=== PATIENT | female | born 1975 | race Asian ===

== ENCOUNTER 2017-03-04 11:49 | Emergency (ER) | payer BC ==
[2017-03-04 13:18] VITALS: BP 151/100
--- NOTE | 2017-03-04 13:35 | UC ---
Throat Pain/Nasal Nuno HPI - HPI Summary HPI Summary: complaint of nasal congestion cough and sore throat that started on 02/28 intermittent headache productive cough denies ear pain denies fever and chills denies N/V/D, muscle achiness taking nyquil , throat spray, ibuprofen with some relief son with similiar illness - History of Current Complaint Chief Complaint: UCRespiratory Stated Complaint: SORE THROAT Time Seen by Provider: 03/04/17 13:29 Hx Obtained From: Patient Hx Last Menstrual Period: 02/22/17 - Allergies/Home Medications Allergies/Adverse Reactions: Allergies Allergy/AdvReac Type Severity Reaction Status Date / Time No Known Allergies Allergy Verified 03/04/17 13:18 Home Medications: Home Medications Levothyroxine TAB* [Synthroid 75 MCG TAB*] 75 mcg PO DAILY 03/04/17 [History Confirmed 03/04/17] PMH/Surg Hx/FS Hx/Imm Hx Previously Healthy: Yes Endocrine History Of: Reports: Thyroid Disease - Surgical History Surgical History: Yes Surgery Procedure, Year, and Place: C section - Family History Known Family History: Negative: Cardiac Disease, Hypertension, Diabetes - Social History Occupation: Employed Full-time Lives: With Family Alcohol Use: Weekly Substance Use Type: None Smoking Status (MU): Never Smoked Tobacco Review of Systems Constitutional: Negative Skin: Negative Eyes: Negative ENT: Sore Throat, Nasal Discharge Respiratory: Cough Cardiovascular: Negative Gastrointestinal: Negative Genitourinary: Negative Motor: Negative Neurovascular: Negative Musculoskeletal: Negative Neurological: Negative Psychological: Negative All Other Systems Reviewed And Are Negative: Yes Physical Exam Triage Information Reviewed: Yes Appearance: No Pain Distress, Well-Nourished Vital Signs: Initial Vital Signs Temp 96.6 F 03/04/17 13:14 Pulse 70 03/04/17 13:14 Resp 16 03/04/17 13:14 BP 151/100 03/04/17 13:14 Pulse Ox 100 03/04/17 13:14 Vital Signs Reviewed: Yes Eyes: Positive: Conjunctiva Clear ENT: Positive: Pharyngeal erythema, Nasal congestion, Nasal drainage, TMs normal , Other: - no sinus tenderness. Negative: Tonsillar swelling, Tonsillar exudate Neck: Positive: No Lymphadenopathy Respiratory: Positive: Lungs clear, Normal breath sounds, No respiratory distress, No accessory muscle use Cardiovascular: Positive: RRR, No Murmur, Pulses Normal Abdomen Description: Positive: Nontender, Soft Bowel Sounds: Positive: Present Musculoskeletal Exam: Normal Neurological: Positive: Alert Psychological Exam: Normal Skin Exam: Normal Throat Pain/Nasal Course/Dx - Differential Dx/Diagnosis Differential Diagnosis/HQI/PQRI: Pharyngitis, URI Provider Diagnoses: URI. elevated blood pressure Discharge - Discharge Plan Condition: Stable Disposition: [facility]ILITY Prescriptions: Benzonatate CAP* [Tessalon 100 MG CAP*] 100 mg PO TID PRN #30 cap PRN Reason: Cough Oxymetazoline 0.05% NASAL SPR* [Afrin 0.05% NASAL SPRAY*] 1 spray NASAL Q12H #1 btl Patient Education Materials: Upper Respiratory Infection (ED) Referrals: No Primary Care Phys,NOPCP [Primary Care Provider] - Chayo Castanon MD [Medical Doctor] - Additional Instructions: VIRAL UPPER RESPIRATORY INFECTION (COMMON COLD) What is Viral Upper Respiratory Infection? Viral upper respiratory infection is the medical term for the common cold. Respiratory infections can be caused by either a virus or bacteria. The common cold is caused by a virus. The virus travels through the air and can be passed easily from one person to another. This is one reason that it is so important to cover your mouth when you cough or sneeze. When you cover your mouth you will get the virus on your hands. If you touch something with that hand the virus is spread to the object you touch. Because of this you should be sure to wash your hands often when you have a cold. Symptoms usually begin 1 to 3 days after the virus takes hold in your body. Other people can catch your cold even before you start to notice symptoms, which is one reason why colds are hard to prevent. Symptoms May Include: Scratchiness or tickling in the throat Sore throat Stuffy nose Generalized aches and pains Coughing or sneezing Feeling tired Treatment Recommendations: Drink plenty of clear, nonalcoholic fluids, such as water, sports drinks, or juice. For example, an average adult should drink 8 ounces every hour, a child 6 to 10 years should drink 4 ounces every hour, and a child under 6 should drink 1 to 2 ounces every hour. You should rest as much as possible. You can use a cool-mist humidifier or steam vaporizer to increase air moisture. This will make it easier to breathe. Remember that a steam vaporizer may contain hot water that can cause severe fuller. If you smoke, stopsmoke irritates bronchial passages. If you are coughing up mucus, and milk seems to make the sputum thicker, do not eat or drink foods that contain milk. You want to try to cough up mucous whenever possible so that you dont get pneumonia. Do not use cough suppressant medicine without your healthcare providers OK. You should take all medications prescribed until completely gone, or as instructed. Non-prescription medicine such as acetaminophen (Tylenol) or ibuprofen (Motrin , Advil) may help your aches, pains, and fever. Do not take someone else's medicine, or penicillin tablets that you may have saved. You could cause a more serious problem than you already have. Don't bundle up to sweat out a fever. It only makes your fever worse. If you feel cold, cover up; if you feel warm, dress lightly. Your blood pressure is elevated. Please contact your primary care provider within 1 -4 weeks for further evaluation
== END 2017-03-04 13:45 | disposition home or self-care (01) ==
LOC: MERGE 11:49 → UCEAST 11:49
DX: J06.9 Acute upper respiratory infection, unspecified (principal); R03.0 Elevated blood-pressure reading, without diagnosis of hypertension; E07.9 Disorder of thyroid, unspecified
CPT/HCPCS: 99201; G0463

== ENCOUNTER → 2018-08-17 19:27 | Emergency (ER) | payer BC, OTHER ==
--- NOTE | 2018-08-17 20:09 | ED ---
- HPI Summary HPI Summary: Pt is a 43 year old F presenting to the ED with a chief complaint of vaginal bleeding. Pt was 5 weeks when the fetus stopped growing, is supposed to be 9 weeks , and was dxed with her miscarriage on 08/13/2018 at her [employer] office. The bleeding onset 2 wks ago but is heavier today, passing tissue , and has cramps. Pt has only been 1 other time and has a son. - History of Current Complaint Chief Complaint: EDVaginalBleeding Stated Complaint: 9 WKS PREG/BLEEDING/CRAMPS Time Seen by Provider: 08/17/18 19:49 Hx Obtained From: Patient Chief Complaint: Other: - miscarriage w/ associated bleeding and cramps Onset/Duration: Started Weeks Ago, Still Present, Worse Since - today Timing: Constant Severity: Moderate Current Severity: Moderate Pain Intensity: 6 Location of Pain: Suprapubic Character: Cramping Aggravating Factors: Nothing Alleviating Factors: Nothing Associated Signs and Symptoms: Positive: Vaginal Bleeding or Discharge - also passing tissue - Assessment Hx Now: No - miscarriage Hx : 2 Hx Para: 1 SAB: 0 IEA: 0 Vaginal Bleeding Amount: Medium - Additional Pertinent History Maternal Blood Type and Rh: A Positive - Allergies/Home Medications Allergies/Adverse Reactions: Allergies Allergy/AdvReac Type Severity Reaction Status Date / Time No Known Allergies Allergy Verified 08/17/18 19:36 PMH/Surg Hx/FS Hx/Imm Hx Previously Healthy: Yes Endocrine/Hematology History: Reports: Hx Thyroid Disease Cardiovascular History: Denies: Hx Hypertension - Surgical History Surgery Procedure, Year, and Place: C section Infectious Disease History: No Infectious Disease History: Denies: Traveled Outside the [place] in Last 30 Days - Family History Known Family History: Negative: Cardiac Disease, Hypertension, Diabetes - Social History Alcohol Use: Weekly Substance Use Type: Reports: None Smoking Status (MU): Never Smoked Tobacco Review of Systems Negative: Fever Positive: other - vaginal bleeding Positive: Myalgia - abdominal cramping All Other Systems Reviewed And Are Negative: Yes Physical Exam - Summary Physical Exam Summary: VITAL SIGNS: Reviewed. GENERAL: Patient is a well-developed and nourished female who is lying comfortable in the stretcher. Patient is not in any acute respiratory distress. HEAD AND FACE: No signs of trauma. No ecchymosis, hematomas or skull depressions. No sinus tenderness. EYES: PERRLA, EOMI x 2, No injected conjunctiva, no nystagmus. EARS: Hearing grossly intact. Ear canals and tympanic membranes are within normal limits. MOUTH: Oropharynx within normal limits. NECK: Supple, trachea is midline, no adenopathy, no JVD, no carotid bruit, no c- spine tenderness, neck with full ROM. CHEST: Symmetric, no tenderness at palpation LUNGS: Clear to auscultation bilaterally. No wheezing or crackles. CVS: Regular rate and rhythm, S1 and S2 present, no murmurs or gallops appreciated. ABDOMEN: Soft, non-tender. No signs of distention. No rebound no guarding, and no masses palpated. Bowel sounds are normal. EXTREMITIES: FROM in all major joints, no edema, no cyanosis or clubbing. NEURO: Alert and oriented x 3. No acute neurological deficits. Speech is normal and follows commands. SKIN: Dry and warm INTERVENTIONAL CARDIOLOGIST: Vagina mild to moderate bleeding, no clots. Cervix closed and posterior. Uterus normal signs. Adnexa No adnexa tenderness. - Physical Exam Triage Information Reviewed: Yes Vital Signs Reviewed: Yes Diagnostics - Vital Signs Vital Signs Temp Pulse Resp BP Pulse Ox 08/17/18 19:30 98.6 F 84 20 135/89 99 - Laboratory Result Diagrams: 08/17/18 20:22 08/17/18 20:22 Lab Statement: Any lab studies that have been ordered have been reviewed, and results considered in the medical decision making process. - Ultrasound No standard instances Ultrasound Interpretation Completed By: Radiologist - ED physician has reviewed this report. Summary of Ultrasound Findings: Findings suggestive of spontaneous in progress with heterogeneous. material seen in the endometrial canal. Minimal free fluid. Re-Evaluation - Re-Evaluation [id number] Change: Improved Comment: Pt states her bleeding is less and that her pain is subsided. She will be sent home with a dx of a complete and spontaneous . Course/Dx - Course Course Of Treatment: Pt is a 43 y/o F presenting to the ED with a chief complaint of vaginal bleeding and cramping onset 2 weeks ago due to miscarriage but worse since today. Pt was supposed to be 9 wks , fetus was declared miscarriaged at 5 wks . Pt has one son, this was her 2nd . Today, pt is passing tissue as well as heavy bleeding. - Diagnoses Provider Diagnoses: Spontaneous , Complete Discharge - Sign-Out/Discharge Documenting (check all that apply): Patient Departure - Discharge Plan Condition: Stable Disposition: HOME Referrals: Chayo Castanon MD [Primary Care Provider] - - Attestation Statements Document Initiated by Scribe: Yes Documenting Scribe: [place] Pearson Provider For Whom Scribe is Documenting (Include Credential): William Boggs MD. Scribe Attestation: [place] Emmanuel, celesteibed for William Boggs MD. on 08/17/18 at [id number]. Consult Consult: [id number] - Spoke with Dr. Quinones about the pt's condition who believes it is most likely a spontaneous and complete . The pt will be sent home with a diagnosis of such.
--- OUTSIDE RECORDS SUMMARY | 2018-08-17 20:20 | XMS REPORT | Continuity of Care Document ---
:1975 External Reference #:[id number] Author Name Raine Nicholson CNM Address [address] [place] [address] Care Team Providers Name Role Phone Hawa Perea Care Team Information Business Teacher Unavailable Chayo Castanon MD Primary Care Physician Unavailable Payers Type Date Identification Numbers Payment Provider Subscriber Policy Number: [id number] [facility] Par Ramiro Sigala PayID: [id number] [employer] [place] [address] Advance Directives Description No Information Available Problems Date Description Provider Status Onset: 03/16/2016 Elderly primigravida Avril Hammond CNM Resolved Resolved: 07/31/2018 Family History Date Family Member(s) Problem(s) Comments Father due to Lung Cancer () : (age 51 Mother due to Cervical Years) Cancer First Son A&W First Brother A&W Paternal Grandfather due to Unknown () Causes Paternal Grandmother A&W Maternal Grandfather due to Unknown () Causes Maternal Grandmother due to Old Age () Maternal Uncles due to [place] () Social History Type Date Description Comments Sex Unknown Education Highest level completed, Doctorate Marital Status Lives With Spouse Lives With Son Pets 3 cats Occupation research at [employer] Tobacco Use Start: Unknown Never Smoked Cigarettes ETOH Use Denies alcohol use Tobacco Use Start: Unknown Patient has never smoked Recreational Drug Use Denies Drug Use Seat Belt/Car Seat Always uses seat belt STD's No STD History Allergies, Adverse Reactions, Alerts Date Description Reaction Status Severity Comments 08/01/2016 NKDA Active 02/14/2016 Pollen Active Medications Medication Date Status Form Strength Qnty SIG Indications Ordering Provider Levothyroxine 07/31/ Active Tablets 88mcg 30tabs 1 by mouth Catarina Sodium 2018 every day RODGER Cardoso Breast Pump 08/04/ Active Misc 1units dual Martin Howard 2016 dinorah Hart M.D. / Active Tablets 28-0.8mg please give Unknown Vitamins 0000 genric ptrenatal vitamin that is prefferd by insurance plan one tablet by mouth daily Azithromycin 04/19/ Hx Tablets 250mg 6tabs 2 tablets Catarina 2015 - by mouth Walker today, then RODGER 2015 1 tablet by mouth daily Keflex 03/18/ Hx Capsules 500mg 14caps 1 by mouth Avril 2015 - twice a day RODGER Hammond 03/25/ x 7 days 2015 Levothyroxine / Hx Tablets 50mcg 1 by mouth Unknown Sodium 0000 - every day 2017 Unisom / Hx Unknown 0000 - 2015 Colace / Hx Capsules 50mg 1 po bid Unknown 0000 - 2016 Immunizations CPT Code Status Date Vaccine Lot # [id number] Given 07/21/2016 Influenza Virus Vaccine Split Virus Use For [id number] Individual 3Yr Older [id number] Given 06/20/2016 Tetnus, Diptheria Toxoids And Acellular Pertussis, [id number] PT > 7Yrs Old Vital Signs Date Vital Result Comment 08/06/2018 11:06am BP Systolic 122 mmHg BP Diastolic 82 mmHg Height 64 inches 5'4" Weight 158.00 lb BMI (Body Mass Index) 27.1 kg/m2 Last Menstrual Period 9414965 2 Parity 1 07/31/2018 10:03am BP Systolic 130 mmHg BP Diastolic 74 mmHg Height 64 inches 5'4" Weight 158.00 lb BMI (Body Mass Index) 27.1 kg/m2 Last Menstrual Period 9938862 2 Parity 1 10/13/2016 3:00pm BP Systolic 122 mmHg BP Diastolic 78 mmHg Height 64 inches 5'4" Weight 152.00 lb BMI (Body Mass Index) 26.1 kg/m2 1 Parity 1 09/15/2016 1:08pm BP Systolic 142 mmHg BP Diastolic 82 mmHg Body Temperature 98.1 F Heart Rate 80 /min Height 64 inches 5'4" Weight 156.00 lb BMI (Body Mass Index) 26.8 kg/m2 1 Parity 1 02/14/2016 1:55pm BP Systolic 128 mmHg BP Diastolic 80 mmHg Height 64 inches 5'4" Weight 150.00 lb BMI (Body Mass Index) 25.7 kg/m2 Last Menstrual Period 1518422 1 Parity 0 Results Test Date Facility Test Result H/L Range Note Laboratory test 08/08/2018 [facility] HCG 22213.00 1 [place] [address] mIU/mL [phone] Laboratory test 08/06/2018 [facility] HCG 47547.00 2 [place] [address] mIU/mL [phone] Laboratory test 08/16/2016 [facility] Genital For GRP SEE RESULT 3 [place] [address] B Strep Only BELOW [phone] Laboratory test 07/21/2016 [facility] TSH 1.52 0.34-5.60 4 [place] [address] mcIU/mL [phone] T4 Free 0.72 ng/dL 0.61-1.12 5 Liver Function 07/21/2016 [facility] Total Protein 6.2 g/dL Low 6.4-8.9 [place] [address] [phone] Albumin 3.4 g/dL 3.2-5.2 Globulin 2.8 g/dL 2-4 Albumin/Globulin Ratio 1.2 1-3 Total Bilirubin 0.30 mg/dL 0.2-1.0 Direct Bilirubin 0.00 mg/dL Low 0.03-0.18 Alkaline Phosphatase 53 U/L 34-104 Alt 24 U/L 7-52 Ast 18 U/L 13-39 Laboratory test 07/21/2016 [facility] Bile Acid 7 umol/L 0- 10 6 [place] [address] [phone] Glucose 06/29/2016 [facility] GTT 3HR (SEE NOTE) 7 Tolerance 3HR [place] [address] Gestational Gestational [phone] Laboratory test 06/20/2016 [facility] Glucose 1 HR 147 mg/dL 70-160 8 [place] [address] Post Prandial [phone] CBC With No Diff 06/20/2016 [facility] White Blood 11.9 High 3.5-10.8 [place] [address] Count 10^3/uL [phone] Red Blood Count 3.93 10^6/uL Low 4.0-5.4 Hemoglobin 11.8 g/dL Low 12.0-16.0 Hematocrit 35 % 35-47 Mean Corpuscular Volume 90 fL 80-97 Mean Corpuscular Hemoglobin 30 pg 27-31 Mean Corpuscular HGB Conc 33 g/dL 31-36 Red Cell Distribution Width 14 % 10.5-15 Platelet Count 286 10^3/uL 150-450 Mean Platelet Volume 8 um3 7.4-10.4 Laboratory test 06/20/2016 [facility] TSH 1.93 mcIU/mL 0.34- 5.60 9 [place] [address] [phone] T4 Free 0.70 ng/dL 0.61-1.12 10 Urine Culture And 03/16/2016 [facility] Urine Culture SEE RESULT 11 [place] [address] BELOW [phone] SCR+Sex 02/21/2016 [facility] Chromosome 13 Negative 12 Chrom Analysis Aneuploidy Inform Chromosome 18 Aneuploidy Negative 13 Chromosome 21 Aneuploidy Negative 14 Sex Chromosome Analysis Male 15 PDF Report SEE IMAGE Laboratory test 02/14/2016 [facility] Human Papilloma Negative Negative 16 [place] [address] Virus Rna [phone] GC/Chlamydia 02/14/2016 [facility] Chlamydia Negative [place] [address] trachomatis Rna [phone] Neisseria gonorrhoeae (GC) Rna Negative Negative Laboratory 02/14/2016 [facility] Cytology SEE RESULT 17 [place] [address] BELOW [phone] Lead 02/14/2016 [facility] Lead <1.0 g/dL 0.0-4.9 [place] [address] [phone] HIV 1/2 AB 02/14/2016 [facility] HIV 1 2 Nonreactive Nonreactive 18 [place] [address] Antibody [phone] Type And 02/14/2016 [facility] Patient [place] [address] Blood Type [phone] Antibody Screen NEGATIVE CBC With No 02/14/2016 [facility] White Blood 10.8 10^3/uL 3.5-10.8 [place] [address] Count [phone] Red Blood Count 4.36 10^6/uL 4.0-5.4 Hemoglobin 13.3 g/dL 12.0-16.0 Hematocrit 42 % 35-47 Mean Corpuscular Volume 96 fL 80-97 Mean Corpuscular Hemoglobin 30 pg 27-31 Mean Corpuscular HGB Conc 32 g/dL 31-36 Red Cell Distribution Width 14 % 10.5-15 Platelet Count 319 10^3/uL 150-450 Mean Platelet Volume 8 um3 7.4-10.4 PNL No 02/14/2016 [facility] Rubella Screen Immune IU/ mL Immune 19 [place] [address] [phone] Hemoglobin A1c 5.0 % Less than 6.0 20 Hepatitis B Surface Ag Nonreactive Nonreactive 21 Syphillis Igg W/Reflex RPR Nonreactive Nonreactive 22 1 <5.0 Negative 5.0 - 25.0 Indeterminate (Repeat testing recommended after 72 hours) >25.0 Positive Perimenopausal women can display HCG levels of up to 20 mIU/mL 2 <5.0 Negative 5.0 - 25.0 Indeterminate (Repeat testing recommended after 72 hours) >25.0 Positive Perimenopausal women can display HCG levels of up to 20 mIU/mL 3 SEE RESULT BELOW Name: RAMIRO SIGALA : [address]: Elan Perera MD Acct: [id number] Unit: [id number] AGE: 41 Location: [facility] Re08/16/16 SEX: F Status: REG REF SPEC: [id number] SIDNEY: 08/16/16-[address] [facility] [address]: Elan Perera MD REQ: [id number] RECD: 08/16/16 STATUS: COMP _ SOURCE: CER/VAG/RE SPDESC: ORDERED: Harley Tapia COMMENTS: [id number] QUERIES: Is Patient Penicillin Allergic? N Is patient penicillin allergic and/or sensitivities needed? N Provider Requisition # [id number] Procedure Result Reported Site Group B Strep Culture Screen Final 08/18/16- 09 ML Group B Strep Screen Negative * ML - MAIN LAB (PSC1) . END OF REPORT * ML=Testing performed at Main Lab DEPARTMENT OF PATHOLOGY, [address] [place] [address] Adam Boswell M.D. Director [facility] # [id number] INTERPRETIVE INFORMATION: Bile Acids, Total Reference Interval applies to fasting specimens. Performed by [facility], [address] [place] [id number] [email or web address], Alex Brady MD - Lab. Director Test Performed by: [facility] [address] [place] [id number] 7 GLU Fast 77 Col: 06/29/16 1128 GLU 1HR 120 Col: 06/29/16 1218 GLU 2HR 122 Col: 06/29/16 1318 GLU 3HR 105 Col: 06/29/16 1418 GLU Interp Col: 06/29/16 1128 GTT normal ranges for obstetrics per the [place] [employer] (ACOG).Based on 100 gm glucose load: Fasting <95 mg/dl 1hr <180 mg/dl 2hr <155 mg/dl 3hr <140 mg/dl 8 [id number] 11 SEE RESULT BELOW Name: RAMIRO SIGALA : [address]: Avril Hammond [facility] Acct: [id number] Unit: [id number] AGE: 40 Location: [facility] Re03/16/16 SEX: F Status: REG REF SPEC: [id number] SIDNEY: 03/16/[address] [facility] [address]: Avril Hammond [facility] REQ: [id number] RECD: 03/16/16 STATUS: COMP _ [facility] ORDERED: Urine Culture COMMENTS: [id number] Procedure Result Reported Site Urine Culture Final 03/18/16- 915 ML Organism 1 ENTEROCOCCUS FAECALIS Latta Count 10-25,000 (Moderate) CFU/ML Organism 2 NORMAL PASCUAL Latta Count 1-10,000 (Few) CFU/ML 1. ENTEROCOCCUS FAECALIS M.I.C. RX --------- ------ Ampicillin <=2 S Penicillin 4 S Ciprofloxacin 1 S Gentamicin High Level S Levofloxacin 1 S Linezolid 2 S Nitrofurantoin <=16 S * Quinupristin/Dalfopristin 4 R * Streptomycin High Level S Tetracycline <=1 S Doxycycline - Deduced S * Minocycline - Deduced S Tigecycline <=0.12 S Vancomycin 1 S Imipenem-Deduced S * Ampicillin/Sulbactam-Deduced S CONTINUED ON NEXT PAGE * ML=Testing performed at Main Lab DEPARTMENT OF PATHOLOGY, [address] [place] [address] Adam Boswell M.D. Director [facility] # [id number] Patient: RAMIRO SIGALA [id number] (Continued) Specimen: [id number] Collected: 03/16/16 Received: 03/16/16 (Continued) Procedure Result Reported Site Urine Culture Final (continued) * These antibiotics are not available in the [facility] Formulary Contact the Microbiology Department for any additional antibiotic reporting. * ML - [facility] ([facility]) . END OF REPORT * ML=Testing performed at Main Lab DEPARTMENT OF PATHOLOGY, [address] [place] [address] Adam Boswell M.D. Director [facility] # [id number] 12 No aneuploidy detected. 13 No aneuploidy detected. 14 No aneuploidy detected. 15 Male: No aneuploidy detected. 16 The high-risk HPV types detected by the assay include: 16, 18, 31, 33, 35, 39, 45, 51, 52, 56, 58, 59, 66, and 68. 17 SEE RESULT BELOW Name: RAMIRO SIGALA : [address]: Carolyn Riddle CNP Acct: [id number] Unit: [id number] AGE: 40 Location: [facility] Re02/14/16 SEX: F Status: REG REF SPEC: [id number] SIDNEY: 02/14/16-[address]: Carolyn Riddle CNP REQ: [id number] RECD: 02/15/16-1110 STATUS: SOUT _ ORDERED: IMAGE ANALYSIS, HPV/Thin Prep COMMENTS: [id number] FINAL DIAGNOSIS Negative for Intraepithelial lesion or Malignancy A. Ectocervical/Endocervical Specimen Adequacy: Satisfactory of evaluation Transformation zone component identified Patient Information: HPV: High risk HPV RNA testing regardless of pap results. Actual Specimen Date: 02/14/16 Last Menstrual Date: 12/03/15 Spec Date if unknown: 2013 ?: Y Date Time Test Result Flag (u) Normal Range 02/14/16 1432 HPV RNA Negative Negative The high-risk HPV types detected by the assay include: 16, 18, 31, 33, 35, 39, 45, 51, 52, 56, 58, 59, 66, and 68. Signed (signature on file) SABINE Gold(ASCP) 02/15 1300 This Pap test was evaluated with the assistance of the ThinPrep Test Imaging System. Due to cytologic findings at the exhibit designer microscope, comprehensive manual rescreening by a Migratory Game Bird Biologist may be required. The Pap Smear is a screening test designed to aid in the detection of premalignant and malignant conditions of the uterine cervix. It is not a diagnostic procedure and should not be used as the sole means of detecting cervical cancer. Both false- positive and false- negative reports do occur. Depending on your risk status, a Pap smear should be obtained and evaluated every 1-3 years. END OF REPORT * ML=Testing performed at Main Lab DEPARTMENT OF PATHOLOGY, [address] [place] [address] Adam Boswell M.D. Director [facility] # [id number] 18 It is recognized that currently available assays for the detection of antibodies to HIV-1 and/or HIV-2 may not detect all infected individuals. HIV antibodies may be undetectable in some stages of the infection and in some clinical conditions. The performance of this assay has not been established for populations of infants or children. Assayed by Chemiluminescence Microparticle Immunoassay on the Siemens Advia Centaur CP. Values obtained with different methods or kits cannot be used interchangeably.The diagnostic specificity of the ADVIA Centaur 1/O/2 Enhanced assay in the low risk population was 99.90% (6052/6058) with a 95% confidence interval of 99.78 to 99.96%. 19 [id number] 20 Therapeutic target for the treatment of diabetes Mellitus patients is <7% HBA1C, and in selective patients <6.0%.Please refer to [place] [employer] Diabetic care guidelines for further information. 21 [id number] 22 Warning: A positive result is not useful for establishing a diagnosis of syphilis. In most situations, such a result may reflect a prior treated infection; a negative result can exclude a diagnosis of syphilis except for incubating or early primary disease. Procedures Date Code Description Status 08/06/2018 68292 Echography Transvaginal Completed 09/08/2016 17170 Delivery Only Completed 09/08/2016 96224 Delivery Routine Completed 09/06/2016 91445 Non-Stress Test Completed 08/16/2016 48415 Biophysical Profile Without Non Stress Test Completed 08/16/2016 27836 Echography Uterus Follow-Up Or Repeat Completed 07/21/2016 83796 Biophysical Profile Without Non Stress Test Completed 07/21/2016 58000 Echography Uterus Follow-Up Or Repeat Completed 04/19/2016 91729 Echography Uterus Complete Completed Encounters Type Date Location Provider Dx Diagnosis Office Visit 08/06/2018 [facility] Raine Nicholson, O36.80x0 w 11:20a CNM inconclusive viability, unsp Plan of Treatment Future Appointment(s):09/02/2018 1:40 pm - MAXIMO Ernandez at [facility] 1:00 pm - Ultrasounds at [facility]08/06/2018 - Raine Nicholson, CNMO36.80x0 with inconclusive viability, not applicable
--- OUTSIDE RECORDS SUMMARY | 2018-08-17 20:20 | XMS REPORT | Continuity of Care Document ---
:1975 External Reference #:[id number] Author Name Shari Josey Pineda Care Team Providers Name Role Phone Hawa Perea Care Team Information Service Engine Repairer Unavailable Chayo Castanon MD Primary Care Physician Unavailable Payers Type Date Identification Numbers Payment Provider Subscriber Policy Number: [id number] [employer]/Pel[employer] Par Ramiro Sigala PayID: [id number] [place] [address] Advance Directives Description No Information Available Problems [...] Old Age () Maternal Uncles due to [place] () Social History Type Date Description Comments Sex Unknown Education Highest level completed, Doctorate Marital Status Lives With Spouse Lives With Son Pets 3 cats Occupation research at [employer] Tobacco Use Start: Unknown Never Smoked Cigarettes [...] Pump 08/04/ Active Misc 1units dual Martin Hart M.D. / Active Tablets 28-0.8mg please give Unknown Vitamins 0000 genric ptrenatal vitamin that is prefferd by insurance plan one tablet by mouth daily Azithromycin 04/19/ Hx Tablets 250mg 6tabs 2 tablets Catarina 2015 - by mouth Walker 04/24/ today, then RODGER 2015 1 tablet by mouth daily Keflex 03/18/ Hx Capsules 500mg 14caps 1 by mouth Avril 2015 - twice a day RODGER Hammond 03/25/ x 7 days 2015 Levothyroxine / Hx Tablets 50mcg 1 by mouth Unknown Sodium 0000 - every day 2017 Unisom 00/ Hx Unknown 0000 - 2015 Colace / Hx Capsules 50mg 1 po bid Unknown 0000 - 2016 Immunizations CPT Code Status Date Vaccine Lot # [id number] Given 07/21/2016 Influenza Virus Vaccine Split Virus Use For [id number] Individual 3Yr Older [id number] Given 06/20/2016 Tetnus, Diptheria Toxoids And Acellular Pertussis, [id number] PT > 7Yrs Old Vital Signs Date Vital Result Comment 08/12/2018 2:38pm BP Systolic 114 mmHg BP Diastolic 76 mmHg 08/06/2018 11:06am BP Systolic 122 mmHg BP Diastolic 82 mmHg Height 64 inches 5'4" Weight 158.00 lb BMI (Body Mass Index) 27.1 kg/m2 Last Menstrual Period 0597330 2 Parity 1 07/31/2018 10:03am BP Systolic 130 mmHg BP Diastolic 74 mmHg Height 64 inches 5'4" Weight 158.00 lb BMI (Body Mass Index) 27.1 kg/m2 Last Menstrual Period 1404257 2 Parity 1 10/13/2016 3:00pm BP Systolic [...] Mass Index) 25.7 kg/m2 Last Menstrual Period 0535853 1 Parity 0 Results Test Date Facility Test Result H/L Range Note Laboratory test 08/13/2018 [facility] [place] HCG <pending> [place] [address] [phone] Laboratory test 08/08/2018 [facility] [place] HCG 62461.00 1 [place] [address] mIU/mL [phone] Laboratory test 08/06/2018 [facility] HCG 60740.00 2 [place] [address] mIU/mL [phone] Laboratory test 08/16/2016 [facility] Genital For GRP SEE RESULT 3 [place] [address] B Strep Only BELOW [phone] Laboratory test 07/21/2016 [facility] TSH 1.52 0.34-5.60 4 [place] [address] mcIU/mL [phone] T4 Free 0.72 ng/dL 0.61-1.12 5 Liver Function 07/21/2016 [facility] Total Protein 6.2 g/dL Low 6.4-8[place]9 [place] [address] [phone] Albumin 3.4 g/dL 3.2-5.2 Globulin 2.8 g/dL 2-4 Albumin/Globulin Ratio 1.2 1-3 Total Bilirubin 0.30 mg/dL 0.2-1.0 Direct Bilirubin 0.00 mg/dL Low 0.03-0.18 Alkaline Phosphatase 53 U/L 34-104 Alt 24 U/L 7-52 Ast 18 U/L 13-39 Laboratory test 07/21/2016 [facility] Bile Acid 7 umol/L 0- [address] [place] [address] [phone] Glucose 06/29/2016 [facility] GTT 3HR (SEE NOTE) 7 Tolerance 3[place] [address] Gestational Gestational [phone] Laboratory test 06/20/2016 [facility] Glucose 1 HR 147 mg/dL 70-160 8 [place] [address] Post Prandial [phone] CBC With No Diff 06/20/2016 [facility] White Blood 11.9 High 3.5-10.8 [place] [address] Count 10^3/uL [phone] Red Blood Count 3.93 10^6/uL Low 4.0-5.4 Hemoglobin 11.8 g/dL Low 12.0-16.0 Hematocrit 35 % 35-47 Mean Corpuscular Volume 90 fL 80-97 Mean Corpuscular Hemoglobin 30 pg 27-31 Mean Corpuscular HGB Conc 33 g/dL 31-36 Red Cell Distribution Width 14 % 10.5-15 Platelet Count 286 10^3/uL 150-450 Mean Platelet Volume 8 um3 7.4-10.4 Laboratory test 06/20/2016 [facility] [place] TSH 1.93 mcIU/mL 0.34- 5.60 9 [place] [address] [phone] T4 Free 0.70 ng/dL 0.61-1.12 10 Urine Culture And 03/16/2016 [facility] [place] Urine Culture SEE RESULT [address] [place] [address] BELOW [phone] SCR+Sex 02/21/2016 [facility] Chromosome 13 Negative 12 Chrom Analysis Aneuploidy Inform Chromosome 18 Aneuploidy Negative 13 Chromosome 21 Aneuploidy Negative 14 Sex Chromosome Analysis Male 15 PDF Report SEE IMAGE Laboratory test 02/14/2016 [facility] Human Papilloma Negative Negative 16 [place] [address] Virus Rna [phone] GC/Chlamydia 02/14/2016 [facility] [place] Chlamydia [place] [address] trachomatis Rna [phone] Neisseria gonorrhoeae (GC) Rna Negative Negative Laboratory 02/14/2016 [facility] [place] Cytology SEE RESULT 17 test [place] [address] BELOW [phone] Lead 02/14/2016 [facility] Lead <1.0 g/dL 0.0-4.9 [place] [address] [phone] HIV 1/2 AB 02/14/2016 [facility] HIV 1 2 Nonreactive Nonreactive 18 [place] [address] Antibody [phone] Type And 02/14/2016 [facility] [place] [address] Blood Type [phone] Antibody Screen NEGATIVE CBC With No 02/14/2016 [facility] White Blood 10.8 10^3/uL 3.5-10.8 [place] [address] Count [phone] Red Blood Count 4.36 10^6/uL 4.0-5.4 Hemoglobin 13.3 g/dL 12.0-16.0 Hematocrit 42 % 35-47 Mean Corpuscular Volume 96 fL 80-97 Mean Corpuscular Hemoglobin 30 pg 27-31 Mean Corpuscular HGB Conc 32 g/dL 31-36 Red Cell Distribution Width 14 % 10.5-15 Platelet Count 319 10^3/uL 150-450 Mean Platelet Volume 8 um3 7.4-10.4 PNL No 02/14/2016 [facility] [place] Rubella Screen Immune IU/ mL Immune 19 [place] [address] [phone] Hemoglobin A1c 5.0 % Less than 6.0 [...] [address]: Elan Perera MD Acct: [id number] Unit: [id number] AGE: 41 Location: [facility] Re08/16/16 SEX: F Status: REG REF SPEC: [id number] SIDNEY: 08/16/16-[address]: Elan Perera MD REQ: [id number] RECD: 08/16/16 STATUS: COMP _ SOURCE: CER/VAG/RE SPDESC: ORDERED: Grp B Strp Scrn COMMENTS: [id number] QUERIES: Is Patient Penicillin Allergic? N Is patient penicillin allergic and/or sensitivities needed? N Provider Requisition # C77#[id number]_ Procedure Result Reported Site Group B Strep Culture Screen Final 08/18/16- 09 ML Group B Strep Screen Negative * ML - MAIN LAB ([facility]) . END OF REPORT * ML=Testing performed at Main Lab DEPARTMENT OF PATHOLOGY, [address] [place] [address] Adam Boswell M.D. Director [facility] # [id number] 5 [id number] INTERPRETIVE INFORMATION: Bile Acids, Total Reference Interval applies to fasting specimens. Performed by [facility], [address] [place] [id number] [email or web address], Alex Brady MD - Lab. Director Test Performed by: [facility] [address] [place] [address] 7 GLU Fast 77 Col: 06/29/16 1128 GLU 1HR 120 Col: 06/29/16 1218 GLU 2HR 122 Col: 06/29/16 1318 GLU 3HR 105 Col: 06/29/16 1418 GLU Interp Col: 06/29/16 1128 GTT normal ranges for obstetrics per the [place] [employer] (ACOG).Based on 100 gm glucose load: Fasting <95 mg/dl 1hr <180 mg/dl 2hr <155 mg/dl 3hr <140 mg/dl 8 [id number] 10 [id number] 11 SEE RESULT BELOW Name: RAMIRO SIGALA : [address]: Avril Hammond CNM Acct: [id number] Unit: [id number] AGE: 40 Location: [facility] Re03/16/16 SEX: F Status: REG REF SPEC: [id number] SIDNEY: 03/16/16 [facility] DR: Avril Hammond [facility] REQ: [id number] RECD: 03/16/16 STATUS: COMP _ SOURCE: URINE SPDESC: ORDERED: Urine Culture COMMENTS: [id number] Procedure Result Reported Site Urine Culture Final 03/18/16- 915 ML Organism 1 ENTEROCOCCUS FAECALIS [place] Count 10-25,000 (Moderate) CFU/ML Organism 2 NORMAL PASCUAL [place] Count 1-10,000 (Few) CFU/ML 1. ENTEROCOCCUS FAECALIS [...] performed at Main Lab DEPARTMENT OF PATHOLOGY, [address] [place] [address] Aadm Boswell M.D. Director [facility] # [id number] Patient: RAMIRO SIGALA [id number] (Continued) Specimen: [id number] Collected: 03/16/16 Received: 03/16/16-1655 (Continued) Procedure Result Reported Site Urine Culture Final (continued) * These antibiotics are not available in the [facility] Formulary Contact the Microbiology Department for any additional antibiotic reporting. * ML - MAIN LAB ([facility]) . END OF REPORT * ML=Testing performed at Main Lab DEPARTMENT OF PATHOLOGY, [address] [place] [address] Adam Boswell M.D. Director [facility] # [id number] 12 No aneuploidy detected. 13 No aneuploidy detected. 14 No aneuploidy detected. 15 Male: No aneuploidy detected. 16 The high-risk HPV types detected by the assay include: 16, 18, 31, 33, 35, 39, 45, 51, 52, 56, 58, 59, 66, and 68. 17 SEE RESULT BELOW Name: SHERMAN SIGALAYohannes : [address]: Carolyn Riddle CNP Acct: [id number] Unit: [id number] AGE: 40 Location: [facility] Re02/14/16 SEX: F Status: REG REF SPEC: [id number] SIDNEY: 02/14/16-[address]: Carolyn Riddle [facility] REQ: [id number] RECD: 02/15/16-1110 STATUS: SOUT _ ORDERED: IMAGE ANALYSIS, HPV/Thin Prep COMMENTS: [id number] FINAL DIAGNOSIS Negative for Intraepithelial lesion or [...] System. Due to cytologic findings at the wrapper selector microscope, comprehensive manual rescreening by a [facility] may be required. The Pap Smear is [...] performed at Main Lab DEPARTMENT OF PATHOLOGY, [address] [place] [address] Adam Boswell M.D. Director [facility] # [id number] 18 It is recognized that currently available [...] confidence interval of 99.78 to 99.96%. 19 [id number] 20 Therapeutic target for the treatment of diabetes Mellitus patients is <7% HBA1C, and in selective patients <6.0%.Please refer to [place] [employer] Diabetic care guidelines for further information. 21 [id number] 22 Warning: A positive result is not useful for establishing a diagnosis of syphilis. In most situations, such a result may reflect a prior treated infection; a negative result can exclude a diagnosis of syphilis except for incubating or early primary disease. Procedures Date Code Description Status 08/13/2018 96237 Echography Transvaginal Completed 08/06/2018 79387 Echography Transvaginal Completed 09/08/2016 30854 Delivery Only Completed 09/08/2016 57345 Delivery Routine Completed 09/06/2016 80353 Non-Stress Test Completed 08/16/2016 10734 Biophysical Profile Without Non Stress Test Completed 08/16/2016 81535 Echography Uterus Follow-Up Or Repeat Completed 07/21/2016 62441 Biophysical Profile Without Non Stress Test Completed 07/21/2016 67971 Echography Uterus Follow-Up Or Repeat Completed 04/19/2016 22292 Echography Uterus Complete Completed Encounters Type Date Location Provider Dx Diagnosis Office Visit 08/06/2018 [facility] Raine Nicholson, O36.80x0 w 11:20a CNM inconclusive viability, unsp Plan of Treatment Future Appointment(s):08/21/2018 3:45 pm - Ingris Quinones MD at [facility] 3:30 pm - Ultrasounds at [facility]09/02/2018 1:40 pm - MAXIMO Ernandez at [facility]09/02/2018 1:00 pm - Ultrasounds at [facility]2017 - Raine Nicholson, CNMO36.80x0 with inconclusive viability , not applicable
[2018-08-17 20:38] LABS: ABS Basophils 0.1 10^3/ul (0-0.2); ABS Eosinophils 0.2 10^3/ul (0-0.6); ABS Lymphocytes 2.9 10^3/ul (1.0-4.8); ABS Monocytes 0.6 10^3/ul (0-0.8); ABS Neutrophils 5.8 10^3/ul (1.5-7.7); ABS Nucleated RBC 0 10^3/ul; Eosinophil % 1.9 % (0-6); Hematocrit 35 % (35-47); Hemoglobin 12.1 g/dl (12.0-16.0); Lymphocyte % 30.3 % (25-47); Mean Corpuscular HGB Conc 35 g/dl (31-36); Mean Corpuscular Hemoglobin 31 pg (27-31); Mean Corpuscular Volume 89 fL (80-97); Mean Platelet Volume 6.9 fL (7.4-10.4); Nucleated Red Blood Cells % 0.1; Platelet Count 300 10^3/ul (150-450); Red Blood Count 3.95 10^6/ul (4.00-5.40); Red Cell Distribution Width 13 % (10.5-15); White Blood Count 9.5 10^3/ul (3.5-10.8)
[2018-08-17 20:46] LABS: INR 0.9 (0.77-1.02)
[2018-08-17 20:49] LABS: EGFR Non-African American 94.9 (>60)
[2018-08-17 22:26] VITALS: BP 119/76
== END | disposition home or self-care (01) ==
LOC: ED 19:27
DX: O03.9 Complete or unspecified spontaneous abortion without complication (principal)
CPT/HCPCS: 36415; 76817; 80053; 84702; 85025; 85610; 85730; 86850; 86900; 86901; 96360; 96361; 99282

== ENCOUNTER 2018-12-18 11:13 | Emergency (ER) | payer BC, OTHER ==
[2018-12-18 12:03] VITALS: BP 146/97
--- NOTE | 2018-12-18 12:45 | UC ---
Ear Complaint HPI - HPI Summary HPI Summary: 43-year-old female presents with complaints of right since yesterday. States she has had approximately 5 days of upper respiratory symptoms including nasal congestion, clear nasal discharge, and occasionally productive cough for yellow sputum. States she has been using fluticasone nasal spray and saline rinses and is concerned that she may have gotten some fluid behind her right ear. Denies fever, chills, ear drainage, tinnitus, hearing loss, dizziness or vertigo , sore throat, chest pain, or shortness of breath. - History of Current Complaint Chief Complaint: UCRespiratory Stated Complaint: EAR PAIN HEAD CONGESTION Time Seen by Provider: 12/18/18 12:17 Hx Obtained From: Patient Hx Last Menstrual Period: 12/08/18 Pain Intensity: 5 - Allergies/Home Medications Allergies/Adverse Reactions: Allergies Allergy/AdvReac Type Severity Reaction Status Date / Time No Known Allergies Allergy Verified 12/18/18 12:03 PMH/Surg Hx/FS Hx/Imm Hx Previously Healthy: Yes Endocrine History: Hypothyroidism - Surgical History Surgical History: Yes Surgery Procedure, Year, and Place: C section - Family History Known Family History: Negative: Cardiac Disease, Hypertension, Diabetes - Social History Occupation: Employed Full-time Lives: With Family Alcohol Use: Weekly Substance Use Type: None Smoking Status (MU): Never Smoked Tobacco - Immunization History Most Recent Influenza Vaccination: 07/21/16 Most Recent Tetanus Shot: 06/25/16 Most Recent Pneumonia Vaccination: Unknown Review of Systems All Other Systems Reviewed And Are Negative: Yes Constitutional: Negative: Fever, Chills Skin: Negative: Rash Eyes: Negative: Drainage, Eye Redness ENT: Positive: Ear Ache, Nasal Discharge, Sinus Congestion. Negative: Sore Throat, Sinus Pain/Tenderness Respiratory: Positive: Cough. Negative: Shortness Of Breath Cardiovascular: Negative: Palpitations, Chest Pain Gastrointestinal: Negative: Abdominal Pain, Vomiting, Diarrhea, Nausea Genitourinary: Positive: Negative Musculoskeletal: Positive: Negative Neurological: Positive: Negative Is Patient Immunocompromised?: No Physical Exam - Summary Physical Exam Summary: GENERAL APPEARANCE: Well developed, well nourished, alert and cooperative, and appears to be in no acute distress. EYES: Conjunctiva clear. No drainage. Vision is grossly intact. EARS: External auditory canals clear. Left TM opaque with good cone of light. Right TM erythematous with effussion. Hearing grossly intact. NOSE: Mild nasal congestion with clear nasal discharge. THROAT: Pharynx normal. No tonsilar inflammation, swelling, exudate, or lesions. Uvula midline. Oral cavity normal. Teeth and gingiva in good general condition. NECK: Neck supple, non-tender without lymphadenopathy. CARDIAC: Normal S1 and S2. No S3, S4 or murmurs. Rhythm is regular. There is no peripheral edema, cyanosis or pallor. Extremities are warm and well perfused. Capillary refill is less than 2 seconds. Peripheral pulses intact. LUNGS: Clear to auscultation without rales, rhonchi, wheezing or diminished breath sounds. Non-productive cough. ABDOMEN: Positive bowel sounds. Soft, nondistended, nontender. No guarding or rebound. No masses or hepatosplenomegally. MUSKULOSKELETAL: ROM intact to all extremities. No joint erythema or tenderness. Normal muscular development. Normal gait. SKIN: Skin normal color, texture and turgor with no lesions or eruptions. Triage Information Reviewed: Yes Vital Signs: Initial Vital Signs Temp 98.4 F 12/18/18 12:00 Pulse 87 12/18/18 12:00 Resp 20 12/18/18 12:00 BP 146/97 12/18/18 12:00 Pulse Ox 100 12/18/18 12:00 Vital Signs Reviewed: Yes Ear Complaint Course/Dx - Course Course Of Treatment: 43-year-old female presents with complaints of right since yesterday. States she has had approximately 5 days of upper respiratory symptoms including nasal congestion, clear nasal discharge, and occasionally productive cough for yellow sputum. States she has been using fluticasone nasal spray and saline rinses and is concerned that she may have gotten some fluid behind her right ear. Denies fever, chills, ear drainage, tinnitus, hearing loss, dizziness or vertigo, sore throat, chest pain, or shortness of breath. Afebrile. Hypertensive otherwise vital signs stable. Exam reveal an adult female in no acute distress with mild-moderate nasal congestion, clear nasal discharge, erythematous right TM with effusion, and otherwise unremarkable exam. Will treat for right otitis media with amoxicillin 875 mg BID x 10 days and recommend syptomatic treatment for a URI. She is to follow up with her PCP in 07-21 for a recheck of the ear, sooner if no improvement. Anticipatory guidance and warning symptoms reviewed with patient. Verbalizes understanding and agrees with POC. - Differential Dx/Diagnosis Differential Diagnosis/HQI/PQRI: Otitis Externa, Otitis Media, URI Provider Diagnosis: URI (upper respiratory infection), Right otitis media with effusion Discharge - Sign-Out/Discharge Documenting (check all that apply): Patient Departure All imaging exams completed and their final reports reviewed: No Studies - Discharge Plan Condition: Stable Disposition: HOME Prescriptions: Amoxicillin PO (*) [Amoxicillin 875 MG (*)] 875 mg PO BID #20 tab Benzonatate CAP* [Tessalon 100 MG CAP*] 100 mg PO TID PRN #30 cap PRN Reason: Cough Patient Education Materials: Ear Infection (ED), Upper Respiratory Infection ( ED) Referrals: Chayo Castanon MD [Primary Care Provider] - (Follow up in 10-14 days to have ear rechecked. Sooner if no improvement in symptoms.) Additional Instructions: Your history and exam are consistent with an upper respiratory infection with a secondary ear infection of the right ear. We will start you on an antibiotic to treat the ear infection. Drink plenty of fluids to avoid dehydration especially if you are running any fever. Continue to use your fluticasone (Flonase) nasal spray 2 sprays each nostril once daily. Use Tessalon Perles 1 cap every 8 hours as needed for cough. Take over the counter acetaminophen (Tylenol) or ibuprofen (Advil, Motrin) according to directions as needed for pain or fever. Follow up with your primary care provider in 10-14 days for recheck of the ear. Sooner if symptoms do not improve. You blood pressure was elevated in the clinic today. It is recommended that you follow up with you primary care provider within 4 weeks to have this rechecked. Seek immediate medical attention in the emergency room if you have fever greater than 100.5 F despite taking acetaminophen or ibuprofen, you have drainage or bleeding from the ear, have chest pain, difficulty breathing, are unable to swallow, or have any worsening of symptoms. - Billing Disposition and Condition Condition: STABLE Disposition: Home
== END 2018-12-18 13:05 | disposition home or self-care (01) ==
LOC: UCEAST 11:13
DX: H65.91 Unspecified nonsuppurative otitis media, right ear (principal); J06.9 Acute upper respiratory infection, unspecified; R03.0 Elevated blood-pressure reading, without diagnosis of hypertension
CPT/HCPCS: 99212; G0463

== ENCOUNTER 2019-06-20 08:59 | Emergency (ER) | payer BC, OTHER ==
[2019-06-20 09:09] VITALS: BP 122/80
--- NOTE | 2019-06-20 09:56 | UC ---
Throat Pain/Nasal Nuno HPI - HPI Summary HPI Summary: The patient is a 44-year-old female with the onset of fever chills and sore throat that started 2-3 days ago. She has had a mild headache and myalgias. She denies any nausea vomiting or diarrhea. She has had no chest pain or shortness of breath. She has been able to eat and drink. - History of Current Complaint Chief Complaint: UCRespiratory Stated Complaint: SORE THROAT Time Seen by Provider: 06/20/19 09:50 Hx Obtained From: Patient Hx Last Menstrual Period: 12/08/18 Onset/Duration: Gradual Onset, Lasting Days Severity: Severe Pain Intensity: 9 Pain Scale Used: 0-10 Numeric Cough: None Associated Signs & Symptoms: Positive: Fever - Epiglottits Risk Factors Epiglottis Risk Factors: Negative - Allergies/Home Medications Allergies/Adverse Reactions: Allergies Allergy/AdvReac Type Severity Reaction Status Date / Time No Known Allergies Allergy Verified 06/20/19 09:09 PMH/Surg Hx/FS Hx/Imm Hx Previously Healthy: Yes - Surgical History Surgical History: Yes Surgery Procedure, Year, and Place: C section - Family History Known Family History: Negative: Cardiac Disease, Hypertension, Diabetes - Social History Alcohol Use: Rare Substance Use Type: None Smoking Status (MU): Never Smoked Tobacco - Immunization History Most Recent Influenza Vaccination: 07/21/16 Most Recent Tetanus Shot: 06/25/16 Most Recent Pneumonia Vaccination: Unknown Review of Systems All Other Systems Reviewed And Are Negative: Yes Constitutional: Positive: Fever, Chills Skin: Positive: Negative Eyes: Positive: Negative ENT: Positive: Sore Throat Respiratory: Positive: Negative Cardiovascular: Positive: Negative Gastrointestinal: Positive: Negative Genitourinary: Positive: Negative Motor: Positive: Negative Neurovascular: Positive: Negative Musculoskeletal: Positive: Myalgia Neurological: Positive: Headache Psychological: Positive: Negative Physical Exam Triage Information Reviewed: Yes Appearance: Well-Appearing, No Pain Distress, Well-Nourished Vital Signs: Initial Vital Signs Temp 99.2 F 06/20/19 09:05 Pulse 96 06/20/19 09:05 Resp 18 06/20/19 09:05 BP 122/80 06/20/19 09:05 Pulse Ox 100 06/20/19 09:05 Vital Signs Reviewed: Yes Eyes: Positive: Conjunctiva Clear ENT: Positive: Hearing grossly normal, Pharyngeal erythema, TMs normal, Tonsillar exudate, Uvula midline. Negative: Trismus, Muffled voice, Hoarse voice, Dental tenderness, Sinus tenderness Neck: Positive: Supple, Tenderness @ - bilat tender ant cervical LNs Respiratory: Positive: Lungs clear, Normal breath sounds, No respiratory distress, No accessory muscle use Cardiovascular: Positive: RRR, No Murmur Musculoskeletal: Positive: No Edema Neurological: Positive: Alert Psychological Exam: Normal Skin Exam: Normal Throat Pain/Nasal Course/Dx - Course Course Of Treatment: strep + - Differential Dx/Diagnosis Provider Diagnosis: Strep throat Discharge ED - Sign-Out/Discharge Documenting (check all that apply): Patient Departure All imaging exams completed and their final reports reviewed: No Studies - Discharge Plan Condition: Stable Disposition: HOME Prescriptions: Amoxicillin PO (*) [Amoxicillin 875 MG (*)] 875 mg PO BID #20 tab Patient Education Materials: Strep Throat (ED) Referrals: Chayo Castanon MD [Primary Care Provider] - 3 Days (if not better) Additional Instructions: rest tyelnol or advil if needed recheck fro new or worsening symptoms - Billing Disposition and Condition Condition: STABLE Disposition: Home
== END 2019-06-20 10:00 | disposition home or self-care (01) ==
LOC: UCEAST 08:59
DX: J02.0 Streptococcal pharyngitis (principal)
CPT/HCPCS: 87651; 99212; G0463